=== PATIENT | female | born 1950 | race American Indian/Alaskan Native ===

== ENCOUNTER 2019-04-28 08:43 | Outpatient (CLI) | payer MEDICARE ==
--- NOTE | 2019-04-28 16:02 | Mammography Report ---
BONE DEXA CLINICAL: Postmenopausal. TECHNIQUE: 2 site bone DEXA performed on an Hologic scanner. FINDINGS: The average BMD of the lumbar spine L1-L4 is 1.086g/cm squared with a T score of +0.4 and a Z score o f +1.5. The average total BMD of the left hip is 0.923 g/cm squared with a T score of -0.2and a Z score of +0 .4. IMPRESSION: 1. WHO classification: Normal with average fracture risk based on spine measurements. 2. WHO classification Normal with average fracture risk based on left hip measurements. RECOMMENDATION: Clinical correlation and routine screening. Definitions: BMD equal bone mineral density T score = BMD related to peak bone mass of young adult ([place] expressed an standard deviation) Z score = age-matched BMD expressed in SD World health organization (WHO) diagnostic criteria Normal T score greater than equal to 1 standard deviation Osteopenia T score between -1 and -2.4 standard deviation Osteoporosis T score -2.5 standard deviation or below. Note: BMD is not the only risk factor for fracture; also consider factors such as the patient's age, risk of falling, previous osteoporotic fracture, family history of osteoporotic fractures, current sm oker and low body weight. Z scores are not calculated if greater than 80 years of age. Signer Name: Keon Garcia MD Signed: 04/28/2019 3:57 PM Workstation Name: [id number]
--- NOTE | 2019-04-28 16:05 | Mammography Report ---
DIGITAL SCREENING MAMMOGRAM WITH CAD, 04/28/2019 INDICATION: Routine screening mammography. History of bilateral benign breast surgery. TECHNIQUE: Digital bilateral 2D mammography was obtained in the craniocaudal and mediolateral obliq ue projections. This examination was interpreted with the benefit of Computer-Aided Detection analysi s. COMPARISON: None. FINDINGS: Breast Density: The breasts are heterogeneously dense, which may obscure small masses. There is no evidence of dominant mass, suspicious calcifications or architectural distortion in eithe r breast. Positioning of the right MLO view is suboptimal due to limited range of motion in the right shoulder. IMPRESSION: No mammographic evidence of malignancy. Follow up recommendation: Routine yearly BI-RADS Category 1: Negative. A "normal" or negative report should not discourage follow up or biopsy of a clinically significant f inding. A written summary of these findings will be mailed to the patient. The patient will be entered into a mammography reporting system which will generate a reminder letter for the patient's next appointmen t at the appropriate interval. The [employer] recommends yearly mammograms starting at age 40 and continuing as l raymond as a woman is in good health. Breast MRI is recommended for women with an approximate 20-25% or greater lifetime risk of breast cancer, including women with a strong family history of breast or ova yoel cancer or who have been treated for Hodgkin's disease. Signer Name: Keon Garcia MD Signed: 04/28/2019 4:00 PM Workstation Name: [id number]
== END 2019-04-28 08:44 | disposition home or self-care (01) ==
LOC: MAMMO 08:43
PROVIDERS: ATTEND Internal Medicine
DX: Z12.31 Encounter for screening mammogram for malignant neoplasm of breast (principal); Z13.820 Encounter for screening for osteoporosis; M85.88 Other specified disorders of bone density and structure, other site; Z98.890 Other specified postprocedural states; I10 Essential (primary) hypertension; J45.909 Unspecified asthma, uncomplicated; Z90.710 Acquired absence of both cervix and uterus
CPT/HCPCS: 77067; 77080

== ENCOUNTER 2021-02-02 11:04 | Emergency (ER) | payer MEDICARE ==
[2021-02-02 11:37] VITALS: BP 114/63
--- NOTE | 2021-02-02 11:44 | Event Note ---
ED Screening Note Date of service: 02/02/21 Time: 11:44 ED Screening Note: Patient complains of left side pain and chest pain after a fall injury onto the edge of her bed last night This initial assessment/diagnostic orders/clinical plan/treatment(s) is/are subject to change based on patients health status, clinical progression and re- assessment by fellow clinical providers in the ED. Further treatment and workup at subsequent clinical providers discretion. Patient/guardian urged not to elope from the ED as their condition may be serious if not clinically assessed and managed. Initial orders include: Labs EKG Chest x-ray/rib x-ray
--- NOTE | 2021-02-02 12:59 | XRay Report ---
LEFT RIBS 4 VIEWS INDICATION: Lateral left rib pain and left chest pain after fall. COMPARISON: None available. FINDINGS: RIBS: There are acute minimally displaced lateral left eighth and ninth rib fractures. CHEST: There is mild bibasilar atelectasis. No other significant abnormality. 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 IMPRESSION: Acute left eighth and ninth rib fractures without other acute findings. Signer Name: Manuel Martines MD Signed: 02/02/2021 12:54 PM Workstation Name: [id number]
[2021-02-02 14:15] LABS: Alanine Aminotransferase 27 units/L (7-56); Albumin 4.3 g/dL (3.9-5); Blood Urea Nitrogen 22 mg/dL (7-17); Calcium 9.5 mg/dL (8.4-10.2); Hemolysis Index 9
[2021-02-02 14:41] LABS: BUN/Creatinine Ratio 44
[2021-02-02] MEDS ORDERED: IBUPROFEN 800 MG TAB PO STA (15:02)
[2021-02-02] MEDS ORDERED: oxyCODONE /ACETAMINOPHEN 5-325MG TAB PO ONE ×2 (15:02)
[2021-02-02 16:38] LABS: Basophils % (Auto) 0.1 % (0.0-1.8); Eosinophils % (Auto) 0.1 % (0.0-4.3); Hematocrit 33.1 % (30.3-42.9); Hemoglobin 10.9 gm/dl (10.1-14.3); Lymphocytes # (Auto) 1.2 K/mm3 (1.2-5.4); Lymphocytes % (Auto) 13.2 % (13.4-35.0); Mean Corpuscular HGB Conc 33 % (30-34); Mean Corpuscular Volume 70 fl (79-97); Monocytes # (Auto) 0.6 K/mm3 (0.0-0.8); Monocytes % (Auto) 6.3 % (0.0-7.3); Platelet Count 193 K/mm3 (140-440); Red Blood Count 4.73 M/mm3 (3.65-5.03); Red Cell Distribution Width 15.7 % (13.2-15.2)
[2021-02-02] MEDS ORDERED: HYDROcodone/ACETAMINOPHEN 5-325 MG TAB PO ONE (20:00)
--- NOTE | 2021-02-02 20:13 | Emergency Department Report ---
ED General Adult HPI - General Chief complaint: Fall Stated complaint: FALL,CHEST PAINS Time Seen by Provider: 02/02/21 11:44 Source: patient Mode of arrival: Wheelchair Limitations: No Limitations - History of Present Illness Initial comments: Patient complains of left side pain and chest pain after a fall injury onto the edge of her bed last night. Patient denies LOC denies dizziness, or lightheadedness, there is no nausea / vomiting, no shortness of breath, no wheezing, or stridor. There is no bleeding abrasion, laceration or bleeding. No hemoptysis. Patient arrived today via POV and family member. Patient is amatory with steady gait with no acute distress. Severity scale (0 -10): 10 - Related Data Home Medications Medication Instructions Recorded Confirmed Last Taken Pediatric Multivit 61/D3/Vit K 1 cap PO DAILY 07/20/16 03/26/17 Unknown [Complete Formulation Multivit] traMADol 50 mg PO HS PRN 04/10/17 04/10/17 04/03/17 Previous Rx's Medication Instructions Recorded Last Taken Type oxyCODONE /ACETAMINOPHEN [Percocet 1 tab PO Q6HR PRN #12 tablet 02/02/21 Unknown Rx 5/325] Allergies Allergy/AdvReac Type Severity Reaction Status Date / Time iodine Allergy Swelling Verified 07/20/16 14:47 ED Review of Systems ROS: Stated complaint: FALL,CHEST PAINS Other details as noted in HPI Constitutional: denies: chills, fever Eyes: denies: eye pain, eye discharge, vision change ENT: denies: ear pain, throat pain Respiratory: denies: cough, shortness of breath, wheezing Cardiovascular: chest pain (left lateral chest wall pain ). denies: palpitations, dyspnea on exertion, orthopnea, edema, syncope, paroxysmal nocturnal dyspnea Endocrine: no symptoms reported Gastrointestinal: denies: abdominal pain, nausea, vomiting, diarrhea Genitourinary: denies: urgency, dysuria, discharge Musculoskeletal: denies: back pain, joint swelling, arthralgia Skin: denies: rash, lesions Neurological: denies: headache, weakness, paresthesias, vertigo Psychiatric: as per HPI Hematological/Lymphatic: denies: easy bleeding, easy bruising ED Past Medical Hx - Past Medical History Previous Medical History?: Yes Hx Hypertension: Yes Hx Arthritis: Yes Hx Asthma: Yes (as a child) - Surgical History Past Surgical History?: Yes Additional Surgical History: right knee replacement - Social History Smoking Status: Never Smoker Substance Use Type: None - Medications Home Medications: Home Medications Medication Instructions Recorded Confirmed Last Taken Type Pediatric Multivit 61/D3/Vit K 1 cap PO DAILY 07/20/16 03/26/17 Unknown History [Complete Formulation Multivit] traMADol 50 mg PO HS PRN 04/10/17 04/10/17 04/03/17 History oxyCODONE /ACETAMINOPHEN [Percocet 1 tab PO Q6HR PRN #12 tablet 02/02/21 Un known Rx 5/325] ED Physical Exam - General Limitations: No Limitations General appearance: alert, in no apparent distress - Head Head exam: Present: normocephalic, normal inspection - Expanded Head Exam Expanded Head exam: Absent: abrasion, contusion - Eye Eye exam: Present: normal appearance, PERRL, EOMI Pupils: Present: normal accommodation - ENT ENT exam: Present: normal exam, mucous membranes moist, TM's normal bilaterally, normal external ear exam. Absent: normal orophraynx - Neck Neck exam: Present: normal inspection, full ROM. Absent: tenderness, m eningismus - Expanded Neck Exam Expanded Neck exam: Present: other (No posterior vertebral point tenderness range of motion is intact on restriction to all quadrants. There is no abrasion no laceration no bleeding no crepitus no swelling no deformity no step-off.). Absent: tenderness, midline deformity, anterior neck swelling - Respiratory Respiratory exam: Present: normal lung sounds bilaterally, chest wall tenderness, other (mild point tenderness left lateral chest wall , no flail chest, no crepitus, step off, no abrasion no laceration no bleeding , no swelling, no deformity, no step-off.). Absent: respiratory distress, wheezes, rales, rhonchi, stridor, decreased breath sounds, prolonged expiratory - Cardiovascular Cardiovascular Exam: Present: regular rate, normal rhythm, normal heart sounds. Absent: systolic murmur, diastolic murmur, rubs, gallop - GI/Abdominal GI/Abdominal exam: Present: soft, normal bowel sounds. Absent: distended, tenderness, guarding, rebound, rigid, bruit, hernia - Rectal Rectal exam: Present: deferred - Extremities Exam Extremities exam: Present: normal inspection, full ROM, normal capillary refill. Absent: tenderness - Back Exam Back exam: Present: normal inspection, full ROM. Absent: tenderness, muscle spasm, paraspinal tenderness, vertebral tenderness - Neurological Exam Neurological exam: Present: alert, oriented X3, CN II-XII intact, normal gait, reflexes normal. Absent: motor sensory deficit - Expanded Neurological Exam Expanded Patient oriented to: Present: person, place, time Speech: Present: fluid speech Best Eye Response ([place]): (4) open spontaneously Best Motor Response ([place]): (6) obeys commands Best Verbal Response ([place]): (5) oriented [place] Total: 15 - Psychiatric Psychiatric exam: Present: normal affect, normal mood - Skin Skin exam: Present: warm, dry, intact, normal color. Absent: rash ED Course Vital Signs 02/02/21 11:33 Temperature 99.0 F Pulse Rate 111 H Respiratory 18 Rate Blood Pressure 114/63 O2 Sat by Pulse 98 Oximetry ED Medical Decision Making - Lab Data Result diagrams: 02/02/21 16:08 02/02/21 13:17 Labs 02/02/21 02/02/21 13:17 16:08 WBC 8.9 RBC 4.73 Hgb 10.9 Hct 33.1 MCV 70 L MCH 23 L MCHC 33 RDW 15.7 H Plt Count 193 Lymph % (Auto) 13.2 L [place] % (Auto) 6.3 Eos % (Auto) 0.1 Baso % (Auto) 0.1 Lymph # (Auto) 1.2 [place] # (Auto) 0.6 Eos # (Auto) 0.0 Baso # (Auto) 0.0 Seg Neutrophils % 80.3 H Seg Neutrophils # 7.1 Sodium 140 Potassium 3.8 Chloride 106.6 Carbon Dioxide 20 L Anion Gap 17 BUN 22 H Creatinine 0.5 L Estimated GFR > 60 BUN/Creatinine Ratio 44 Glucose 112 H Calcium 9.5 Total Bilirubin 0.40 AST 34 ALT 27 Alkaline Phosphatase 74 Troponin T < 0.010 Total Protein 7.0 Albumin 4.3 Albumin/Globulin Ratio 1.6 - EKG Data EKG shows normal: sinus rhythm, axis, intervals, QRS complexes, ST-T waves Rate: normal - EKG Data Interpretation: no acute changes (SR LAE , No STEMI, interp by ed attending ) - Radiology Data Radiology results: report reviewed, image reviewed Left Ribs RIBS 4 VIEWS INDICATION: Lateral left rib pain and left chest pain after fall. COMPARISON: None available. FINDINGS: RIBS: There are acute minimally displaced lateral left eighth and ninth rib fractures. CHEST: There is mild bibasilar atelectasis. No other significant abnormality. 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 IMPRESSION: Acute left eighth and ninth rib fractures without other acute findings. Signer Name: Manuel Martines MD Signed: 02/02/2021 11:54 AM Workstation Name: [id number] - Medical Decision Making Chest Xray Acute left eighth and ninth rib fractures without other acute findings. Ekg: NSR , trop <0.010, pain is improved, discussed diagnosis, insentive spirometery, prn pain med follow up with pcp in 2-3 , return to emergency if symptoms worsen, pt verbalized agreement and understanding of discharge plan. Critical care attestation.: If time is entered above; I have spent that time in minutes in the direct care of this critically ill patient, excluding procedure time. ED Disposition Clinical Impression: Fall Qualifiers: Encounter type: initial encounter Qualified Code(s): W19.XXXA - Unspecified fall, initial encounter Closed rib fracture Qualifiers: Encounter type: initial encounter Rib fracture type: multiple ribs Laterality: left Qualified Code(s): S22.42XA - Multiple fractures of ribs, left side, initial encounter for closed fracture Disposition: DC-01 TO HOME OR SELFCARE Is pt being admited?: No Does the pt Need Aspirin: No Condition: Stable Instructions: How to Use an Incentive Spirometer, Rib Fracture, [id number] Additional Instructions: Take medications as prescribed, use incentive spirometry as directed, follow-up primary care doctor in 2 to 3 days. Prescriptions: oxyCODONE /ACETAMINOPHEN [Percocet 5/325] 1 tab PO Q6HR PRN #12 tablet PRN Reason: Pain Referrals: BOB GARCIA MD [Primary Care Provider] - 3-5 Days Forms: Work/School Release Form(ED) Time of Disposition: 20:23
--- NOTE | 2021-02-03 10:14 | Electrocardiograph Report ---
[facility] Test Date: 2021-02-02 Test Time: 11:23:41 Pat Name: TOM ALLISON Department: Room: Gender: F Clinical Operations Leader: JAYDEN : 1950 Requested By: MANDI LUCAS Order Number: [id number] Reading MD: Ji Arshad Measurements Intervals [place] Rate: 96 P: 7 MA: 125 QRS: 49 QRSD: 87 T: 19 QT: 359 QTc: 453 Interpretive Statements Sinus rhythm LAE, consider biatrial enlargement No previous ECG available for comparison Electronically Signed On 02-03-2021 10:13:43 EDT by Ji Arshad
== END 2021-02-02 20:50 | disposition home or self-care (01) ==
LOC: ED 11:04
DX: S22.42XA Multiple fractures of ribs, left side, initial encounter for closed fracture (principal); I10 Essential (primary) hypertension; M19.91 Primary osteoarthritis, unspecified site; J45.909 Unspecified asthma, uncomplicated; Z98.890 Other specified postprocedural states; Z79.899 Other long term (current) drug therapy; Z88.8 Allergy status to other drugs, medicaments and biological substances; W19.XXXA Unspecified fall, initial encounter; Y93.89 Activity, other specified; Y92.89 Other specified places as the place of occurrence of the external cause; Y99.8 Other external cause status
CPT/HCPCS: 36415; 80053; 84484; 85025; 93005

== ENCOUNTER 2021-06-05 20:06 | Emergency (ER) | payer MEDICARE ==
[2021-06-05] MEDS ORDERED: ONDANSETRON 4 MG/2 ML INJ IV ONE (20:16)
[2021-06-05] MEDS ORDERED: SODIUM CHLORIDE 0.9% 1000 ML 1,000 ML IV ONE (20:16)
--- NOTE | 2021-06-05 20:16 | Emergency Department Report ---
ED Abdominal Pain HPI - General Chief Complaint: Abdominal Pain Time Seen by Provider: 06/05/21 20:15 - History of Present Illness Initial Comments: Patient presents by ambulance secondary to episodic lower abdominal pain. She states that the pain initially was in the lower abdomen. It is now diffuse. She states that she has pain all over. She has had no fevers or chills per there is no cough congestion. She has had nausea with vomiting. She has not had diarrhea but does report loose stools. Patient has not had hematemesis or coughing emesis. There is no dysuria frequency. She has no trauma. There is never been any symptom like this for her. Symptoms have been present over the last day or so. They seem to have worsened tonight. - Related Data Home Medications Medication Instructions Recorded Confirmed Last Taken Pediatric Multivit 61/D3/Vit K 1 cap PO DAILY 07/20/16 03/26/17 Unknown [Complete Formulation Multivit] Previous Rx's Medication Instructions Recorded Last Taken Type oxyCODONE /ACETAMINOPHEN [Percocet 1 tab PO Q6HR PRN #12 tablet 02/02/21 Unknown Rx 5/325] Hyoscyamine Subl [Levsin Sl 0.125 0.125 mg SL Q6HR PRN #20 tab 06/05/21 Unknown Rx TAB] Ondansetron [Zofran ODT TAB] 8 mg PO Q8HR PRN #20 tab.rapdis 06/05/21 Unknown Rx Allergies Allergy/AdvReac Type Severity Reaction Status Date / Time iodine Allergy Swelling Verified 07/20/16 14:47 ED Review of Systems ROS: Stated complaint: Other details as noted in HPI Comment: All other systems reviewed and negative Constitutional: denies: fever Eyes: denies: eye pain ENT: denies: ear pain Respiratory: denies: cough Cardiovascular: denies: chest pain Endocrine: denies: unexplained weight loss Gastrointestinal: as per HPI Genitourinary: denies: dysuria Musculoskeletal: denies: back pain Skin: denies: rash Neurological: denies: headache Hematological/Lymphatic: denies: easy bruising ED Past Medical Hx - Past Medical History Hx Hypertension: Yes Hx Arthritis: Yes Hx Asthma: Yes (as a child) - Surgical History Additional Surgical History: right knee replacement - Family History Family history: hypertension - Social History Smoking Status: Never Smoker Substance Use Type: None - Medications Home Medications: Home Medications Medication Instructions Recorded Confirmed Last Taken Type Pediatric Multivit 61/D3/Vit K 1 cap PO DAILY 07/20/16 03/26/17 Unknown History [Complete Formulation Multivit] oxyCODONE /ACETAMINOPHEN [Percocet 1 tab PO Q6HR PRN #12 tablet 02/02/21 Unknown Rx 5/325] Hyoscyamine Subl [Levsin Sl 0.125 0.125 mg SL Q6HR PRN #20 tab 06/05/21 Unknown Rx TAB] Ondansetron [Zofran ODT TAB] 8 mg PO Q8HR PRN #20 tab.rapdis 06/05/21 Unknown Rx ED Physical Exam - General Limitations: No Limitations, Other (Pulse ox noted and normal) General appearance: alert, in no apparent distress - Head Head exam: Present: atraumatic, normocephalic - Eye Eye exam: Present: normal appearance, EOMI. Absent: scleral icterus - ENT ENT exam: Present: normal exam, normal orophraynx - Neck Neck exam: Present: normal inspection. Absent: meningismus - Respiratory Respiratory exam: Present: normal lung sounds bilaterally. Absent: respiratory distress - Cardiovascular Cardiovascular Exam: Present: regular rate, normal rhythm - GI/Abdominal GI/Abdominal exam: Present: soft, tenderness (Diffuse). Absent: guarding, rebound, pulsatile mass - Extremities Exam Extremities exam: Present: normal capillary refill. Absent: pedal edema - Back Exam Back exam: Absent: CVA tenderness (R), CVA tenderness (L) - Neurological Exam Neurological exam: Present: alert, oriented X3, CN II-XII intact, reflexes normal. Absent: motor sensory deficit - Psychiatric Psychiatric exam: Present: normal affect, normal mood - Skin Skin exam: Present: warm, dry ED Course - Reevaluation(s) Reevaluation #1: 06/05/21 19:40 EMS was met. Labs and x-ray were ordered. Reevaluation #3: 06/05/21 22:05 Labs are pending. ED Medical Decision Making - Lab Data Result diagrams: 06/05/21 21:46 06/05/21 21:46 - Radiology Data Radiology results: report reviewed - Medical Decision Making Patient presents with abdominal pain of unclear etiology. There is no rad iographic evidence of perforation or obstruction. She does not have peritoneal findings on exam. There is no clinical suspicion for hepatitis or pancreatitis. She is not jaundiced. Patient does not have tenderness in the right lower quadrant to suggest appendicitis. On exam, there is actually no point tenderness or focal tenderness. There is no pulsatile mass. She feels better after medication and is ready to go home. We've discussed outpatient follow-up. Critical Care Time: No Critical care attestation.: If time is entered above; I have spent that time in minutes in the direct care of this critically ill patient, excluding procedure time. ED Disposition Clinical Impression: Generalized abdominal pain Disposition: HOME / SELF CARE / HOMELESS Is pt being admited?: No Condition: Stable Instructions: Abdominal Pain (ED), Abdominal Pain, Adult, [id number] Additional Instructions: Have a bland diet. Drink plenty water. Return for problems. Follow-up with your regular doctor for recheck. Prescriptions: Hyoscyamine Subl [Levsin Sl 0.125 TAB] 0.125 mg SL Q6HR PRN #20 tab PRN Reason: Pain, Moderate (4-6) Ondansetron [Zofran ODT TAB] 8 mg PO Q8HR PRN #20 tab.rapdis PRN Reason: Nausea Referrals: PRIMARY CAREMD [Referring] - 3-5 Days RISA SOTO MD [Staff Physician] - 3-5 Days
[2021-06-05] MEDS ORDERED: fentaNYL 100 MCG/2 ML INJ IV ONE (20:17)
--- NOTE | 2021-06-05 21:36 | XRay Report ---
ABDOMEN 3 VIEW(S) INDICATION / CLINICAL INFORMATION: pain. COMPARISON: None available. FINDINGS: TUBES / LINES: None. BOWEL GAS PATTERN: No significant abnormality. FREE AIR / EXTRALUMINAL GAS: None seen. ADDITIONAL FINDINGS: Old healed left rib fracture deformities. IMPRESSION: 1. No significant abnormality. Signer Name: Tai Srinivasan MD Signed: 06/05/2021 9:31 PM Workstation Name: [id number]
[2021-06-05 21:58] LABS: Basophils # (Auto) 0.1 K/mm3 (0.0-0.1); Basophils % (Auto) 1.2 % (0.0-1.8); Eosinophils # (Auto) 0.1 K/mm3 (0.0-0.4); Eosinophils % (Auto) 1.8 % (0.0-4.3); Hematocrit 35.7 % (30.3-42.9); Hemoglobin 11.3 gm/dl (10.1-14.3); Lymphocytes # (Auto) 1.7 K/mm3 (1.2-5.4); Mean Corpuscular HGB Conc 32 % (30-34); Monocytes # (Auto) 0.4 K/mm3 (0.0-0.8); Monocytes % (Auto) 7.3 % (0.0-7.3); Platelet Count 241 K/mm3 (140-440); Red Blood Count 5.19 M/mm3 (3.65-5.03); Red Cell Distribution Width 16.6 % (13.2-15.2)
[2021-06-05 22:00] LABS: Mean Corpuscular Volume 69 fl (79-97)
[2021-06-05 22:10] LABS: Blood Urea Nitrogen 17 mg/dL (7-17); Calcium 9.4 mg/dL (8.4-10.2); Hemolysis Index 9
[2021-06-05 22:14] LABS: BUN/Creatinine Ratio 34
[2021-06-05 22:50] VITALS: BP 120/70
== END 2021-06-05 22:52 | disposition home or self-care (01) ==
LOC: ED 20:06
DX: R10.84 Generalized abdominal pain (principal); J45.909 Unspecified asthma, uncomplicated; I10 Essential (primary) hypertension; Z91.041 Radiographic dye allergy status; Z87.39 Personal history of other diseases of the musculoskeletal system and connective tissue
CPT/HCPCS: 36415; 74022; 80048; 85025; 96361; 96374; 96375; 99284; J2405; J3010; J7030; Q0162

== ENCOUNTER 2022-01-16 08:59 | Outpatient (CLI) | payer MEDICARE ==
--- NOTE | 2022-01-16 11:02 | XRay Report ---
CERVICAL SPINE 5 VIEWS INDICATION: Neck pain. COMPARISON: None. IMPRESSION: There is mild reversal of the normal cervical lordosis. 2 mm anterolisthesis of C3 with respect to C4 is suspected. 2 mm retrolisthesis of C5 with respect to C6 is suspected. The remaining cervical vertebra are in normal alignment. There is mild to moderate multilevel degenerative change. C5-6 appears to be the most affected level. The oblique images are limited but there is suggestion o f mild neural foraminal narrowing at C3-4 and C5-6 bilaterally. No acute osseous or soft tissue abno rmality. BILATERAL SHOULDERS 3 VIEWS INDICATION: Bilateral shoulder pain. COMPARISON: None. IMPRESSION: Within the right shoulder, there are severe degenerative changes at the right glenohumer al joint. Osteonecrosis of the medial right humeral head could also be present. There are mild degene rative changes at the AC joint. Within the left shoulder, there is moderate widening of the left AC joint up to 1 cm which could represent ligamentous injury at the AC joint. Alignment is otherwise nor mal. There are mild osteoarthritic changes at the glenohumeral joint and AC joint. No evidence for ac kayla fracture or bone lesion. RIGHT CLAVICLE 2 VIEWS INDICATION: Right clavicle pain, right shoulder pain. COMPARISON: None. IMPRESSION: The clavicle is intact. No evidence for fracture or bone lesion. Mild degenerative mcdonnell ges at the right AC joint is noted. Signer Name: Jose Goff Jr, MD Signed: 01/16/2022 10:57 AM Workstation Name: [id number]
== END 2022-01-16 09:00 | disposition home or self-care (01) ==
LOC: XRAY 08:59
DX: M47.812 Spondylosis without myelopathy or radiculopathy, cervical region (principal); M19.012 Primary osteoarthritis, left shoulder; M19.011 Primary osteoarthritis, right shoulder; M48.02 Spinal stenosis, cervical region
CPT/HCPCS: 72050